=== PATIENT | male | born 1985 | race American Indian/Alaskan Native ===

== ENCOUNTER 2016-08-02 21:19 | Emergency (ER) | payer MEDICARE ==
[2016-08-02 22:10] VITALS: RESP 18; TEMP 98.1; O2SAT 99
--- NOTE | 2016-08-02 23:26 | ED PDOC ---
Arrival/HPI <Eliezer Siu - Last Filed: 08/03/16 01:33> <Mary Lou Kennedy - Last Filed: 08/03/16 05:15> - General Chief Complaint: Abdominal Pain Time Seen by Provider: 08/02/16 23:21 - History of Present Illness Narrative History of Present Illness (Text): 08/02/16 23:22 Patient is a 31 y/o with no significant pmh presenting with bloody bowel movement. Patient states +3 months ago he had episodes of bloody bowel movement while he was taking ibuprofen, which has resolved. Then yesterday he started to experience bloody bowel movement, in the toilet bowel and when he wipes. Patient went to urgent care, was giving GI referral, however patient didn't follow up and decided to come to the ED. Patient denies h/o constipation. Denies dizziness, lightheadedness, denies n/v/d. (Mary Lou Kennedy) Past Medical History - Provider Review Nursing Documentation Reviewed: Yes - Travel History Have you recently traveled outside [place] w/in the past 3 mons?: No - Past History Past History: No Previous - Infectious Disease Hx of Infectious Diseases: None - Tetanus Immunization Tetanus Immunization: Unknown - Psychiatric Hx Substance Use: No Other/Comment: ADD, narcolepsy <Mary Lou Kennedy - Last Filed: 08/03/16 05:15> Family/Social History - Physician Review Nursing Documentation Reviewed: Yes Family/Social History: No Known Family HX Smoking Status: Never Smoked Hx Alcohol Use: Yes Frequency of alcohol use: Socially Hx Substance Use: No <Mary Lou Kennedy - Last Filed: 08/03/16 05:15> Allergies/Home Meds <Eliezer Siu - Last Filed: 08/03/16 01:33> <Mary Lou Kennedy - Last Filed: 08/03/16 05:15> Allergies/Adverse Reactions: Allergies No Known Allergies Allergy (Verified 08/02/16 22:10) Review of Systems - Review of Systems Constitutional: Normal Eyes: Normal ENT: Normal Respiratory: Normal Cardiovascular: Normal Gastrointestinal: Stool Changes, Hematochezia. absent: Abdominal Pain, Constipation, Diarrhea, Nausea, Vomiting Genitourinary Male: Normal Musculoskeletal: Normal Skin: Normal Neurological: Normal Endocrine: Normal Hemo/Lymphatic: Normal Psychiatric: Normal <Mary Lou Kennedy - Last Filed: 08/03/16 05:15> Physical Exam Temperature: Afebrile Blood Pressure: Normal Pulse: Regular Respiratory Rate: Normal Appearance: Positive for: Well-Appearing, Non-Toxic, Comfortable Pain Distress: None Mental Status: Positive for: Alert and Oriented X 3 - Systems Exam Head: Present: Atraumatic, Normocephalic Pupils: Present: PERRL Extroacular Muscles: Present: EOMI Conjunctiva: Present: Normal Mouth: Present: Moist Mucous Membranes Neck: Present: Normal Range of Motion Respiratory/Chest: Present: Clear to Auscultation, Good Air Exchange. No: Respiratory Distress, Accessory Muscle Use Cardiovascular: Present: Regular Rate and Rhythm, Normal S1, S2. No: Murmurs Abdomen: Present: Normal Bowel Sounds. No: Tenderness, Distention, Rebound Back: Present: Normal Inspection Upper Extremity: Present: Normal Inspection. No: Edema Lower Extremity: Present: Normal Inspection. No: Edema Neurological: Present: GCS=15 Skin: Present: Warm Psychiatric: Present: Alert, Oriented x 3, Normal Insight, Normal Concentration <Mary Lou Kennedy - Last Filed: 08/03/16 05:15> Vital Signs Temp Pulse Resp BP Pulse Ox 08/03/16 01:30 84 18 120/68 99 08/02/16 22:05 98.1 F 89 18 124/72 99 Medical Decision Making <Eliezer Siu - Last Filed: 08/03/16 01:33> Re-evaluation Time: 01:35 Reassessment Condition: Re-examined, Improved - Lab Interpretations I have reviewed the lab results: Yes Interpretation: All labs normal <Mary Lou Kennedy - Last Filed: 08/03/16 05:15> ED Course and Treatment: Impression: Pt seen and evaluated with medical center manager. Pt, with no significant past medical history, presented for hematochezia since yesterday. Aware and agree with HPI, clinical findings, plan, and management. Plan: -- Labs Pt refused rectal exam. (Eliezer Siu) Patient refused rectal exam. 08/03/16 01:31 (Mary Lou Kennedy) - Lab Interpretations Lab Results: 08/02/16 23:52 08/02/16 23:52 Lab Results 08/02/16 23:52: Sodium 139, Potassium 3.6, Chloride 103, Carbon Dioxide 26, Anion Gap 14, BUN 10, Creatinine 0.9, Est GFR ( Amer) > 60, Est GFR (Non- Af Amer) > 60, Random Glucose 82, Calcium 9.1, Total Bilirubin 0.8, AST 29, ALT 33, Alkaline Phosphatase 67, Total Protein 7.3, Albumin 4.4, Globulin 2.8, Albumin/Globulin Ratio 1.6 08/02/16 23:52: WBC 4.5, RBC 4.27, Hgb 13.6 L, Hct 38.3 L, MCV 89.7, MCH 31.9, MCHC 35.5, RDW 12.2, Plt Count 137, MPV 10.7, Gran % 57.8, Lymph % (Auto) 31.0, Starr % (Auto) 9.5 H, Eos % (Auto) 1.5, Baso % (Auto) 0.2, Gran # 2.61, Lymph # 1.4, Starr # 0.4, Eos # 0.1, Baso # 0.01 - PA / DATABASE ADMIN / Resident Statement KHAI has reviewed & agrees with the documentation as recorded. / has examined the patient and agrees with the treatment plan. <Eliezer Siu - Last Filed: 08/03/16 01:33> Disposition/Present on Arrival <Eliezer Siu - Last Filed: 08/03/16 01:33> - Present on Arrival Any Indicators Present on Arrival: No History of DVT/PE: No History of Uncontrolled Diabetes: No Urinary Catheter: No History of Decub. Ulcer: No History Surgical Site Infection Following: None - Disposition Have Diagnosis and Disposition been Completed?: Yes Disposition Time: 01:45 Patient Plan: Discharge <Mary Lou Kennedy - Last Filed: 08/03/16 05:15> - Disposition Diagnosis: GI bleeding Disposition: HOME/ ROUTINE Condition: STABLE Additional Instructions: Please make an appointment with a stomach doctor ( one of them listed below). Go to the nearest emergency room if you experience chest pain, shortness of breath, fever or chills. Referrals: Rosaline Cherry MD [Medical Doctor] - Follow up with primary Jarred Gutierrez MD [Staff Provider] - Follow up with primary
[2016-08-03 00:11] LABS: ADD MANUAL DIFF? NO
[2016-08-03 00:25] LABS: BASO # 0.01 K/mm3 (0.0-2.0); BASO % 0.2 % (0.0-3.0); EOS # 0.1 (0.0-0.7); EOS % 1.5 % (1.5-5.0); GRAN # 2.61 (1.4-6.5); GRAN % 57.8 % (50.0-68.0); HEMATOCRIT 38.3 % (42.0-52.0); LYMPH # 1.4 (1.2-3.4); MEAN CELL VOLUME 89.7 fL (80.0-105.0); MEAN CORPUSCULAR HEMOGLOBIN 31.9 pg (25.0-35.0); MEAN CORPUSCULAR HGB CONC 35.5 g/dl (31.0-37.0); MEAN PLATELET VOLUME 10.7 fl (7.0-11.0); MONO # 0.4 (0.1-0.6); MONO % 9.5 % (1.0-6.0); PLATELET COUNT 137 10^3/uL (120.0-450.0); RED CELL DISTRIBUTION WIDTH 12.2 % (11.5-14.5); WHITE BLOOD COUNT 4.5 10^3/ul (4.5-11.0)
[2016-08-03 00:57] LABS: ALB/GLOB RATIO 1.6 (1.1-1.8); ALKALINE PHOSPHATASE 67 U/L (38-133); ALT/SGPT 33 U/L (7-56); AST/SGOT 29 U/L (15-59); BILIRUBIN,TOTAL 0.8 mg/dL (0.2-1.3); BLOOD UREA NITROGEN 10 mg/dL (7-21); CALCIUM 9.1 mg/dL (8.4-10.5); CARBON DIOXIDE 26 mmol/L (21-33); CHLORIDE 103 mmol/L (98-107); GFR AFRICAN-AMERICAN > 60; GLUCOSE,RANDOM 82 mg/dL (70-110); POTASSIUM 3.6 mmol/L (3.6-5.0); SODIUM 139 mmol/L (132-148); TOTAL PROTEIN 7.3 g/dL (5.8-8.3)
[2016-08-03 02:09] VITALS: BP 120/68; PULSE 84
== END 2016-08-03 01:45 | disposition home or self-care (01) ==
LOC: ED 21:19
DX: K92.2 Gastrointestinal hemorrhage, unspecified (principal)

== ENCOUNTER 2016-08-18 11:39 | Day surgery (SDC) | payer MEDICARE ==
[2016-08-16 14:13] VITALS: BMI 29.2
[2016-08-18] MEDS ORDERED: Propofol 10 mg/ml Inj (20 ML) ONE ×2 (13:45→14:00)
[2016-08-18] MEDS ORDERED: Sodium Chloride 0.9% 1,000 ML IV SCH (14:45)
[2016-08-18 15:06] VITALS: O2SAT 100
[2016-08-18 15:39] VITALS: BP 119/78; PULSE 68; RESP 16; TEMP 98
== END 2016-08-18 16:21 | disposition home or self-care (01) ==
LOC: ENDO 11:39
PROVIDERS: ATTEND Internal Medicine
DX: K22.10 Ulcer of esophagus without bleeding (principal); K92.1 Melena; K63.5 Polyp of colon; K29.50 Unspecified chronic gastritis without bleeding; D64.9 Anemia, unspecified; K64.8 Other hemorrhoids
CPT/HCPCS: 43239; 45380; 88305; 88342; J2704; J7040 ×2